=== PATIENT | female | born 1955 | race Caucasian/White ===

== ENCOUNTER 2017-03-23 15:00 | Inpatient (IN) ==
[2017-04-15 09:24] LABS: MANUAL DIFF NEEDED? NO; URINE MICRO REVIEW NEEDED? NO; URINE SOURCE CLEAN CATCH
[2017-04-15 09:33] LABS: BASO% 0.8 % (0.0-0.8); EOS# 0.28 X1000 (0.0-0.7); EOS% 5.9 % (0.0-10.0); HEMATOCRIT 35.9 % (37.0-47.0); HEMOGLOBIN 11.5 g/dL (12.0-16.0); IMM GRAN# 0.02 X1000 (0.0-0.04); IMM GRAN% 0.4 % (0.0-0.5); LYMPH# 1.39 X1000 (1.2-3.4); LYMPH% 29.4 % (20.5-51.1); MCH 28.8 PG (27-31); MONO# 0.39 X1000 (0.11-0.59); MONO% 8.3 % (1.7-9.3); MPV 9.1 FL (7.4-10.4); NEUT% 55.2 % (42.2-75.2); PLT 290 X1000 (130-400); RBC 3.99 XMIL (4.2-5.4)
[2017-04-15 09:36] LABS: BILIRUBIN URINE NEGATIVE (NEGATIVE); BLOOD URINE NEGATIVE (NEGATIVE); COLOR YELLOW; GLUCOSE URINE NEGATIVE (NEGATIVE); LEUKOCYTES URINE NEGATIVE (NEGATIVE); NITRITE URINE NEGATIVE (NEGATIVE); PROTEIN URINE 30 mg/dL (NEGATIVE); SP GRAVITY URINE 1.018; TURBIDITY URINE CLEAR (CLEAR); UROBILINOGEN URINE NORMAL (NORMAL)
[2017-04-15 09:38] LABS: UR EPITHELIAL CELLS <10 /HPF (<10); URINE BACTERIA NEGATIVE /HPF; URINE RBC <10 /HPF (<10); URINE WBC <10 /HPF (<10)
--- NOTE | 2017-04-15 09:39 | EKG Report ---
Test Performed on : 04/15/2017 08:59:11 AM Test Reason : PAT Blood Pressure : / mmHG Vent. Rate : 073 BPM Atrial Rate : 073 BPM P-R Int : 144 ms QRS Dur : 090 ms QT Int : 398 ms P-R-T Axes : 029 -24 034 degrees QTc Int : 438 ms Normal sinus rhythm. Normal ECG No previous ECGs available Confirmed by Morales Molina MD ([id number]) on 04/15/2017 12:49:47 PM
[2017-04-15 09:48] LABS: INR 0.99; PROTIME 10.4 Seconds (9.2-11.7); PTT 26.3 Seconds (22.0-36.0)
[2017-04-15 09:56] LABS: AGAP 15; BUN 12 mg/dL (8-22); CALCIUM 8.5 mg/dL (8.8-10.2); CHLORIDE 100 mmol/L (98-107); COSMO 280; SODIUM 141 mmol/L (136-145); TCO2 26 mmol/L (25-35)
[2017-04-22] MEDS ORDERED: COLACE ONE (09:16)
[2017-04-22] MEDS ORDERED: LYRICA ONE (09:17)
[2017-04-22] MEDS ORDERED: PEPCID ONE (09:17)
[2017-04-22] MEDS ORDERED: REGLAN ONE (09:17)
[2017-04-22] MEDS ORDERED: CELEBREX ONE (09:17)
[2017-04-22] MEDS ORDERED: LR 1,000 ML ONE (09:18)
[2017-04-22] MEDS ORDERED: KEFZOL 2 GM/D5W 2 GM/50 ML IVPB ONE (09:18)
[2017-04-22] MEDS ORDERED: XYLOCAINE-MPF 2% ONE (10:00)
[2017-04-22] MEDS ORDERED: QUELICIN (DOSE) ONE (10:01)
[2017-04-22] MEDS ORDERED: DIPRIVAN 1% ONE (10:02)
[2017-04-22] MEDS ORDERED: NAROPIN 0.5% ONE (11:27)
[2017-04-22] MEDS ORDERED: VERSED ONE (11:28)
[2017-04-22] MEDS ORDERED: TORADOL ONE (11:55)
[2017-04-22] MEDS ORDERED: SENSORCAINE 0.25%/EPI 1:200,000 ONE (11:55)
[2017-04-22] MEDS ORDERED: DURAMORPH ONE (11:55)
[2017-04-22] MEDS ORDERED: SODIUM CHLORIDE 0.9% ONE (11:56)
[2017-04-22] MEDS ORDERED: CYKLOKAPRON 1,000 MG/NS 1,000 MG/100 ML IVPB ONE (11:56)
[2017-04-22] MEDS ORDERED: NEOSPORIN G.U. IRRIGANT ONE (11:57)
[2017-04-22] MEDS ORDERED: EXPAREL 1.3% ONE (11:57)
[2017-04-22] MEDS ORDERED: LUBRIFRESH PM OPH OINTMENT ONE (12:07)
[2017-04-22] MEDS ORDERED: ROBINUL ONE ×2 (12:51→13:27)
[2017-04-22] MEDS ORDERED: EPHEDRINE ONE (13:01)
[2017-04-22 13:21] LABS: URINE MICRO REVIEW NEEDED? NO; URINE SOURCE CATH
[2017-04-22 13:27] LABS: BILIRUBIN URINE NEGATIVE (NEGATIVE); BLOOD URINE NEGATIVE (NEGATIVE); COLOR YELLOW; GLUCOSE URINE NEGATIVE (NEGATIVE); LEUKOCYTES URINE NEGATIVE (NEGATIVE); NITRITE URINE NEGATIVE (NEGATIVE); PROTEIN URINE 30 mg/dL (NEGATIVE); SP GRAVITY URINE 1.018; TURBIDITY URINE CLEAR (CLEAR); UR EPITHELIAL CELLS <10 /HPF (<10); URINE BACTERIA NEGATIVE /HPF; URINE RBC <10 /HPF (<10); URINE WBC <10 /HPF (<10); UROBILINOGEN URINE NORMAL (NORMAL)
[2017-04-22] MEDS ORDERED: DECADRON ONE (13:27)
[2017-04-22] MEDS ORDERED: ZOFRAN ONE (13:27)
[2017-04-22] MEDS ORDERED: OFIRMEV 1000 MG/ISOTONIC SOLN 1,000 MG/100 ML BOTTLE ONE (13:27)
[2017-04-22] MEDS ORDERED: NS 1,000 ML ONE (14:51)
--- NOTE | 2017-04-22 14:53 | Diag Imaging Result Doc PS360 ---
SHOULDER 1 VIEW RIGHT - 04/22/2017 INDICATION: right TSA TECHNIQUE: COMPARISON: 08/21/2014 FINDINGS: There is been right total shoulder arthroplasty. Alignment is anatomic. No hardware fracture or loosening. Stable surgical widening of the acromioclavicular joint. IMPRESSION: No evidence of complication. Electronically signed by Mir Amaya 04/22/2017 2:50 PM
[2017-04-22] MEDS ORDERED: MORPHINE IV PRN (16:02)
[2017-04-22] MEDS ORDERED: NS 1,000 ML IV SCH (16:15)
[2017-04-22] MEDS ORDERED: TYLENOL PO SCH (16:15)
[2017-04-22] MEDS ORDERED: ZOFRAN PO PRN (16:15)
[2017-04-22] MEDS ORDERED: MILK OF MAGNESIA PO PRN (16:15)
--- NOTE | 2017-04-22 16:45 | HISTORY AND PHYSICAL ---
CHIEF COMPLAINT: Right shoulder pain. HISTORY OF PRESENT ILLNESS: Ms. Belle is a 61-year-old, white female, who has experienced longstanding progressive right shoulder pain. Radiographic evaluation of the right shoulder reveals findings consistent with advanced degenerative joint disease. Despite conservative therapy, she still has a significant reduction in her ability to carry out her normal daily activities, and she will be admitted at this time for right reverse total shoulder arthroplasty. PRIMARY CARE PROVIDER: Dr. Deni Billy. ALLERGIES: No known drug allergies. PAST MEDICAL HISTORY: 1. Osteoarthritis. 2. Systemic lupus erythematosus. 3. Hypothyroidism. 4. Gastroesophageal reflux disease. 5. Depression. 6. Degenerative disk disease. 7. Anxiety disorder. PAST SURGICAL HISTORY: 1. Right carpal tunnel release. 2. Hysterectomy. 3. Low back surgery times 10. 4. Anterior cervical disk fusion. 5. Right shoulder arthroscopy. 6. Thyroid surgery. 7. Sinus surgery. SOCIAL HISTORY: The patient is a . She is a nonsmoker. CURRENT MEDICATIONS: 1. Effexor 75 daily. 2. Omeprazole 40 mg daily as necessary. 3. Mobic 15 daily mg daily. 4. Synthroid 150 mcg by mouth daily. 5. Ibuprofen 800 mg by mouth up to three times a day as necessary. 6. Plaquenil 200 mg by mouth twice daily. 7. Rumely 7.5/325, 1 tablet by mouth as necessary. 8. Gabapentin 2 tablets by mouth at bedtime. 9. Flexeril 10 mg by mouth 3 times a day. 10. Zyrtec 10 mg daily. 11. Xanax 1 mg by mouth 3 times a day. REVIEW OF SYSTEMS: HEENT: The patient has a history of hypothyroidism. No known history of stroke or cerebrovascular disease. Cardiac: No known history of coronary artery disease or valvular heart disease. Denies chest pain, pressure, or other anginal equivalents. Pulmonary: The patient is a nonsmoker with no reported lung disease. Gastrointestinal: She is treated for intermittent gastroesophageal reflux disease. Genitourinary: Denies recent kidney or bladder infection or dysfunction. Neurological: She is treated for anxiety and depression. Musculoskeletal: She has a longstanding history of osteoarthritis. She is being managed for her right shoulder disease today. She has a history of degenerative disk disease having underwent multiple spine surgeries. Other: She is treated for systemic lupus erythematosus. PHYSICAL EXAMINATION: GENERAL: The patient is resting comfortably in bed. She is articulate and able to answer all questions. HEENT: Head is normocephalic, atraumatic. Pupils are equal, round and react to light. Nares are patent. Throat without exudate. NECK: Supple. HEART: Regular rate and rhythm. No murmurs, gallops, or rubs. LUNGS: Clear to auscultation bilaterally. GASTROINTESTINAL: Abdomen is round. Bowel sounds are present. It is nontender. GENITOURINARY: Not examined. NEUROLOGICAL: Gross motor function is intact, as well as sensation via soft touch. MUSCULOSKELETAL: Right shoulder with no deformity, edema or ecchymosis noted. Neurovascular status is intact with a good peripheral pulse. IMPRESSION: Degenerative joint disease of the right shoulder. PLAN: Right reverse total shoulder arthroplasty. The risks and benefits of surgery were explained to the patient including the risk of anesthesia, , bleeding, infection, damage to tendons, ligaments, nerves, and blood vessels, the possibility of blood clots and other imponderables were discussed, and she wishes to proceed with operative management at this time. Dictated by DAPHNE Brown for Brayden Meehan MD cc: DAPHNE Brown MD
[2017-04-22] MEDS: ZYRTEC PO SCH (17:43)
[2017-04-22] MEDS: EFFEXOR PO SCH (17:43)
[2017-04-22] MEDS: PLAQUENIL PO SCH ×2 (17:44→20:38)
[2017-04-22] MEDS: XANAX PO SCH ×2 (17:44→17:46)
[2017-04-22] MEDS: MOTRIN PO SCH ×3 (17:44→18:13)
[2017-04-22] MEDS: FLEXERIL PO SCH ×2 (17:45→18:13)
[2017-04-22] MEDS ORDERED: CYKLOKAPRON 1,000 MG in NS 100 ML IV ONE (18:15)
[2017-04-22] MEDS ORDERED: KEFZOL 1 GM/D5W 1 GM/50 ML IVPB IV SCH (20:00)
[2017-04-22] MEDS: COLACE PO SCH (20:37)
[2017-04-22] MEDS: KEFZOL 2 GM/D5W 2 GM/50 ML IVPB IV SCH (20:37)
[2017-04-22] MEDS: PERIDEX MT SCH (20:38)
[2017-04-22] MEDS: TYLENOL PO SCH (20:38)
[2017-04-22] MEDS ORDERED: GRALISE PO SCH (21:00)
[2017-04-23] MEDS: OXY IR PO PRN ×2 (00:10→04:12)
[2017-04-23] MEDS: TYLENOL PO SCH ×2 (02:55→09:10)
[2017-04-23] MEDS: KEFZOL 2 GM/D5W 2 GM/50 ML IVPB IV SCH (04:13)
[2017-04-23 05:45] LABS: HEMATOCRIT 27.7 % (37.0-47.0); HEMOGLOBIN 8.8 g/dL (12.0-16.0)
[2017-04-23] MEDS: SYNTHROID PO SCH ×2 (05:56→06:26)
[2017-04-23 06:03] LABS: AGAP 10; BUN 10 mg/dL (8-22); CALCIUM 7.9 mg/dL (8.8-10.2); CHLORIDE 105 mmol/L (98-107); COSMO 278; POTASSIUM 4.4 mmol/L (3.5-5.1); SODIUM 139 mmol/L (136-145); TCO2 24 mmol/L (25-35)
[2017-04-23 07:54] VITALS: BP 144/54
--- NOTE | 2017-04-23 08:42 | PROGRESS NOTE ---
DATE: 04/23/2017 SUBJECTIVE: The patient is a pleasant, 61-year-old female who is 1 day status post right reverse total shoulder arthroplasty. She is resting comfortably this morning. Has no complaints. PHYSICAL EXAMINATION: Right upper extremity dressing is intact. She is neurovascularly intact distally. Able to flex all of her fingers. 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 LABORATORY: Her hemoglobin is 8.8 and hematocrit is 27.7. IMPRESSIONS: Postoperative day #1 status post right reverse total shoulder arthroplasty. PLAN: At this point, we will change her dressing and Hep-Lock her IV and discontinue her Kline. We will plan on discharging home and the patient will receive home physical therapy. She will follow up in the office on 05/04/2017. cc: Brayden Meehan MD
[2017-04-23] MEDS ORDERED: ESTRATEST H S PO SCH (09:00)
[2017-04-23] MEDS: COLACE PO SCH (09:09)
[2017-04-23] MEDS: PERIDEX MT SCH (09:09)
[2017-04-23] MEDS: PLAQUENIL PO SCH (09:09)
[2017-04-23] MEDS: EFFEXOR PO SCH (09:10)
[2017-04-23] MEDS: FLEXERIL PO SCH (09:10)
[2017-04-23] MEDS: ZYRTEC PO SCH (09:10)
[2017-04-23] MEDS: XANAX PO SCH (09:10)
[2017-04-23] MEDS: MOTRIN PO SCH (09:10)
--- NOTE | 2017-04-23 12:15 | OPERATIVE NOTE ---
PROCEDURE DATE: 04/22/2017 PREOPERATIVE DIAGNOSIS: Right glenohumeral arthritis with chronic rotator cuff tear. POSTOPERATIVE DIAGNOSIS: Right glenohumeral arthritis with chronic rotator cuff tear. PROCEDURE PERFORMED: Right reverse total shoulder arthroplasty with DePuy Delta Xtend, size 12, press-fit stem; size 42, +3 humeral cup; 42 eccentric Glenosphere; standard metaglene. SURGEON: Brayden Meehan MD ASSISTANTS: 1. DAPHNE Brown 2. SHAKEEL Chen 3. Dionte Mcpherson RN ANESTHESIA: General. IV FLUID: 2850 mL of lactated Ringer's. ESTIMATED BLOOD LOSS: 200 mL. COMPLICATIONS: None. INDICATIONS: The patient is a pleasant 61-year-old female with a chronic history of worsening pain and discomfort in her right shoulder. She has had 2 previous rotator cuff repairs and her revision rotator cuff repair was in September 2014. The patient has continued to develop worsening pain and discomfort and has had underlying glenohumeral arthritis. She has had findings consistent with weakness with clinical findings consistent with chronic rotator cuff tear. The patient has had 3 rotator cuff repairs. The last one was in September 2014. She has continued to develop worsening pain and discomfort and was noted to have underlying glenohumeral arthritis. Given the patient's clinical findings, recommendation to proceed with right reverse total shoulder arthroplasty was offered. The risks and benefits of surgery were explained, including the risks of anesthesia, , bleeding, infection, failure to relieve pain, postoperative stiffness, nerve injury, blood clots, and other imponderables. All questions were answered. The patient and family wished to proceed with surgery. DETAILS OF OPERATION: The patient was taken to the operating room and placed supine on the operating table. Once adequate anesthesia was obtained, the patient was placed in a semi-Mccormick beach-chair position. The right shoulder was subsequently prepped and draped in the usual sterile fashion. A standard deltopectoral incision was made with a skin knife. Hemostasis was obtained using electrocautery. The deltopectoral interval was then developed. Retractors were then placed. The clavipectoral fascia was then elevated and a deep Mendes retractor was placed to this as well. Attention was then turned to the subscapularis tendon. A #1 Vicryl stay suture was placed and release of the subscapularis tendon, approximately 1 cm medial to its insertion, was performed. The shoulder was then reduced anteriorly. The patient did have some indwelling sutures which were reviewed. A starting reamer was then passed into the intramedullary canal. Sequential reaming was conducted up to size 12. A proximal humeral cutting block was pinned in position. The humeral head was then resected. Further anchors were removed as well as some sutures from the previous surgical repair of the rotator cuff. A protective disk was then placed. Attention was then turned to the glenoid. Circumferential dissection was then performed with a deep knife. A guide was then placed for positioning of the guidepin. Reaming was then conducted. After this had been performed, a central hole was dilated. The wound was copiously irrigated with antibiotic pulsatile lavage. A standard metaglene was then impacted in position. Three locking screws were placed and 1 nonlocking screw had good purchase. A 42 eccentric Glenosphere was then placed with the eccentricity placed inferiorly. After this had been performed, attention was then turned to the proximal humerus. The intramedullary guide was in place position. The proximal humerus was then reamed. The intramedullary canal was copiously irrigated with antibiotic pulsatile lavage. A size 12 press-fit humeral stem was then impacted into position. The cup size was then trialed. A 42, +3 had excellent stability and range of motion. The trial cup was removed. The wound was copiously irrigated once again. This was followed by a 42, +3 humeral cup. The shoulder was then reduced and carried through range of motion. It had excellent stability and range of motion. Exparel was placed in the deep soft tissue as well as subcutaneous tissue. The wound was copiously irrigated once again with antibiotic pulsatile lavage. #2 FiberWire was used to repair the subscapularis tendon and there appeared to be good repair. Irrigation was performed once again. This was followed by 2-0 Vicryl in the subcutaneous tissue and running 2-0 Prolene. Benzoin and Steri-Strips were applied. Adaptic, sterile 4 x 4's, ABD pad, and tape were applied to the right shoulder, followed by a shoulder immobilizer. All counts were correct. The patient tolerated the procedure well and was transferred to the recovery room in stable condition. cc: Brayden Meehan MD
== END 2017-04-23 10:52 | disposition home health service (06) ==
LOC: SURHOLD 04-22 08:51 → 4N 04-22 15:20
PROVIDERS: ADMIT Orthopaedic Surgery Adult Reconstructive Orthopaedic Surgery; ATTEND Orthopaedic Surgery Adult Reconstructive Orthopaedic Surgery